=== PATIENT | male | born 1995 | race Two or more races ===

== ENCOUNTER 2016-11-25 00:07 | Emergency (ER) | payer SELFPAY ==
[~2016-11-25] VITALS: Ht 165.1 cm; Wt 65.8 kg
--- NOTE | 2016-11-25 00:17 | NUR ---
21 YO MALE BB RA. PT IS ALERT X 3, STATES HES BEEN DRINKING HEAVILY TONIGHT. DENIES ANY OTHER MEDICAL COMPLAINT. PT DS TO ER BED BY EMS, SKIN WARM AND DRY, RR EVEN AND UNLABORED. PT PLACED ON MOBILE [employer]MENT [employer]PER[employer]. AWAITING ORDERS FROM PROVIDER, DHEERAJ MARIEE TO KEHINDE
--- NOTE | 2016-11-25 03:12 | NUR ---
Pt requesting to be discharged home. PT OK TO DISCHARGE PER DR RING. Patient discharged to home in stable condition. Written and verbal after care instructions given. Patient verbalizes understanding of instruction.Patient is awake and alert to self, day, and place. PT ambulatory with a steady gait. Pt states that he will uber home.
[2016-11-25 03:14] VITALS: BP 122/79
== END 2016-11-25 03:15 | disposition home or self-care (01) ==
LOC: ER 00:09
DX: F10.129 Alcohol abuse with intoxication, unspecified (principal); R11.10 Vomiting, unspecified
CPT/HCPCS: 99283; A4606; Z7610